=== PATIENT | female | born 1985 | race Caucasian/White ===

== ENCOUNTER 2017-02-07 15:44 | Emergency (ER) | payer SELFPAY ==
--- NOTE | 2017-02-07 16:14 | ER Document Report ---
ED Medical Screen (RME) - General Stated Complaint: POSSIBLE OVARIAN CYST Time seen by provider: 16:13 Mode of Arrival: Ambulatory Information source: Patient Notes: 31-year-old female presents to ED for bilateral pelvic pain. She's got a history of ovarian cyst. Denies any burning frequency or urgency with urine. As menstrual period a few weeks ago. I have greeted and performed a rapid initial assessment of this patient. A comprehensive ED assessment and evaluation of the patient, analysis of test results and completion of medical decision making process will be conducted by an additional ED providers. TRAVEL OUTSIDE OF THE [place] IN LAST 30 DAYS: No - Related Data Allergies/Adverse Reactions: sulfamethoxazole [From Bactrim] Allergy (Verified 08/27/16 14:26) trimethoprim [From Bactrim] Allergy (Verified 08/27/16 14:26) Past Medical History Pulmonary Medical History: Reports: Hx Asthma Psychiatric Medical History: Reports: Hx Anxiety, Hx Bipolar Disorder, Hx Depression, Hx Obsessive Compulsive Disorder, Hx Post Traumatic Stress Disorder Past Surgical History: Reports: Hx Adenoidectomy, Hx Orthopedic Surgery, Hx Tonsillectomy - Immunizations Immunizations up to date: Yes Hx Diphtheria, Pertussis, Tetanus Vaccination: Yes Physical Exam - Vital signs Vitals: Temp Pulse Resp BP Pulse Ox 98.6 F 89 17 126/89 H 99 02/07/17 16:02/07/17 16:02/07/17 16:02/07/17 16:02/07/17 16:09 Course - Vital Signs Vital signs: Temp Pulse Resp BP Pulse Ox 98.6 F 89 17 126/89 H 99 02/07/17 16:02/07/17 16:02/07/17 16:02/07/17 16:02/07/17 16:09
[2017-02-07 16:42] LABS: ABSOLUTE BASOPHILS # (AUTO) 0.1 10^3/uL (0.0-0.2); ABSOLUTE EOSINOPHILS # (AUTO) 0.1 10^3/uL (0.0-0.6); ABSOLUTE LYMPHOCYTES (AUTO) 2.6 10^3/uL (0.5-4.7); ABSOLUTE MONOCYTES (AUTO) 0.8 10^3/uL (0.1-1.4); ABSOLUTE NEUT (AUTO) 6.5 10^3/uL (1.7-8.2); BASOPHILS % (AUTO) 0.7 % (0-2); EOSINOPHILS % (AUTO) 1.4 % (0-6); HEMATOCRIT 40.3 % (36.0-47.0); HEMOGLOBIN 13.7 g/dL (12.0-15.5); HGB HCT DIFFERENCE 0.8; LYMPHOCYTES % (AUTO) 25.5 % (13-45); MEAN CORPUSCULAR HEMOGLOBIN 28.8 pg (27.0-33.4); MEAN CORPUSCULAR VOLUME 85 fl (80-97); MONOCYTES % (AUTO) 7.7 % (3-13); RED BLOOD COUNT 4.75 10^6/uL (3.72-5.28); RED CELL DISTRIBUTION WIDTH 14.4 % (11.5-14.0); SEGMENTED NEUTROPHILS % (AUTO) 64.7 % (42-78)
[2017-02-07 17:05] LABS: ALANINE AMINOTRANSFERASE 27 U/L (9-52); ALBUMIN 4.3 g/dL (3.5-5.0); ALKALINE PHOSPHATASE 75 U/L (38-126); ANION GAP 13 (5-19); ASPARTATE AMINO TRANSFERASE 22 U/L (14-36); BILIRUBIN,DIRECT 0.3 mg/dL (0.0-0.4); BILIRUBIN,TOTAL 0.6 mg/dL (0.2-1.3); BLOOD UREA NITROGEN 10 mg/dL (7-20); CALCIUM 9.8 mg/dL (8.4-10.2); CARBON DIOXIDE 27 mmol/L (22-30); CHLORIDE 103 mmol/L (98-107); CREATININE RESULT 0.82 mg/dL (0.52-1.25); GLUCOSE 90 mg/dL (75-110); POTASSIUM 4.1 mmol/L (3.6-5.0); SODIUM 142.9 mmol/L (137-145); TOTAL PROTEIN 7.4 g/dL (6.3-8.2)
[2017-02-07] MEDS ORDERED: HYDROCODONE/ACETAMINOPHEN 5-325 MG TABLET PO ONE (19:07)
--- NOTE | 2017-02-07 19:09 | ER Document Report ---
ED GI/ - General Chief Complaint: Pelvic Pain Stated Complaint: POSSIBLE OVARIAN CYST Mode of Arrival: Ambulatory Information source: Patient Notes: Patient presents complaining of lower pelvic pain for the past 3 days. Patient reports nausea and vomiting 1 episode today. Patient denies any urinary symptoms, fever, or diarrhea. Patient denies any vaginal bleeding or discharge. Patient states she has a history of ovarian cysts and suspects the same today. TRAVEL OUTSIDE OF THE [place] IN LAST 30 DAYS: No - HPI Patient complains to provider of: Pelvic pain, Vomiting. No: Diarrhea, Dysuria , Vaginal discharge Onset: Other - 3 days Timing/Duration: Persistent Quality of pain: Achy Pain Level: 4 Location: Pelvis Vaginal bleeding (Compared to normal period): None Menstrual period history: denies: Sexual history: Active Associated symptoms: Nausea, Vomiting. denies: Dysuria, Fever, Loss of appetite , Urinary hesitancy, Urinary frequency, Urinary retention, Urinary urgency, Vaginal discharge Exacerbated by: Denies Relieved by: Denies Similar symptoms previously: Yes - ovarian cyst Recently seen / treated by doctor: No - Related Data Allergies/Adverse Reactions: sulfamethoxazole [From Bactrim] Allergy (Verified 08/27/16 14:26) trimethoprim [From Bactrim] Allergy (Verified 08/27/16 14:26) Past Medical History - General Information source: Patient - Social History Smoking Status: Current Every Day Smoker Chew tobacco use (# tins/day): No Drug Abuse: None 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 Denies: Hx Peritoneal Dialysis Psychiatric Medical History: Reports: Hx Anxiety, Hx Bipolar Disorder, Hx Depression, Hx Obsessive Compulsive Disorder, Hx Post Traumatic Stress Disorder Past Surgical History: Reports: Hx Adenoidectomy, Hx Orthopedic Surgery, Hx Tonsillectomy - Immunizations Immunizations up to date: Yes Hx Diphtheria, Pertussis, Tetanus Vaccination: Yes Review of Systems - Review of Systems Constitutional: No symptoms reported. denies: Fever, Recent illness EENT: No symptoms reported Cardiovascular: No symptoms reported. denies: Chest pain Respiratory: No symptoms reported. denies: Cough, Short of breath Gastrointestinal: Abdominal pain, Nausea, Vomiting. denies: Diarrhea Genitourinary: No symptoms reported. denies: Dysuria, Flank pain Female Genitourinary: No symptoms reported. denies: , Vaginal discharge , Vaginal bleeding Musculoskeletal: No symptoms reported. denies: Back pain Skin: No symptoms reported Hematologic/Lymphatic: No symptoms reported Neurological/Psychological: No symptoms reported Physical Exam - Vital signs Vitals: Temp Pulse Resp BP Pulse Ox 98.6 F 89 17 126/89 H 99 02/07/17 16:09 02/07/17 16:02/07/17 16:02/07/17 16:02/07/17 16:09 - General General appearance: Appears well, Alert In distress: None Notes: PHYSICAL EXAMINATION: GENERAL: Well-appearing and in no acute distress. HEAD: Atraumatic, normocephalic. EYES: sclera anicteric, conjunctiva are normal. ENT: nares patent. Moist mucous membranes. NECK: Normal range of motion, supple without lymphadenopathy LUNGS: CTAB and equal. No wheezes rales or rhonchi. HEART: Regular rate and rhythm without murmurs ABDOMEN: Soft, lower pelvic tenderness, normal bowel sounds, no guarding. EXTREMITIES: Normal range of motion, no pitting edema. No cyanosis. BACK: No midline tenderness, no step-off or deformity. No CVA tenderness NEUROLOGICAL: Cranial nerves grossly intact. Normal speech. Normal gait. PSYCH: Normal mood, normal affect. SKIN: Warm, Dry, normal turgor, no rashes or lesions noted - Genitourinary External exam: Normal Speculum exam: Cervix closed, Vaginal discharge Vaginal bleeding: None Bimanuel exam: Normal. No: Cervical motion tender, Adnexal mass, Adnexal tenderness Course - Re-evaluation Re-evalutation: 02/07/17 20:[address] Johnson regarding patient presentation, agrees with discharge plan of care. - Vital Signs Vital signs: Temp Pulse Resp BP Pulse Ox 98.6 F 89 17 126/89 H 99 02/07/17 16:09 02/07/17 16:09 02/07/17 16:02/07/17 16:02/07/17 16:09 - Laboratory Result Diagrams: 02/07/17 16:30 02/07/17 16:30 Laboratory results interpreted by me: 02/07/17 02/07/17 16:30 19:24 RDW 14.4 H Urine Protein 100 H Urine Ketones TRACE H Urine Bilirubin SMALL H Urine Urobilinogen 2.0 H 02/07/17 20:12 Labs- Entire Visit 02/07/17 02/07/17 02/07/17 16:30 16:30 16:30 WBC 10.0 RBC 4.75 Hgb 13.7 Hct 40.3 MCV 85 MCH 28.8 MCHC 34.0 RDW 14.4 H Plt Count 333 Seg Neutrophils % 64.7 Lymphocytes % 25.5 Monocytes % 7.7 Eosinophils % 1.4 Basophils % 0.7 Absolute Neutrophils 6.5 Absolute Lymphocytes 2.6 Absolute Monocytes 0.8 Absolute Eosinophils 0.1 Absolute Basophils 0.1 Sodium 142.9 Potassium 4.1 Chloride 103 Carbon Dioxide 27 Anion Gap 13 BUN 10 Creatinine 0.82 Est GFR ( Amer) > 60 Est GFR (Non-Af Amer) > 60 Glucose 90 Calcium 9.8 Total Bilirubin 0.6 Direct Bilirubin 0.3 Indirect Bilirubin Not Reportable Neonat Total Bilirubin Not Reportable AST 22 ALT 27 Alkaline Phosphatase 75 Total Protein 7.4 Albumin 4.3 Serum HCG, Qual NEGATIVE Urine Color Urine Appearance Urine pH Ur Specific [place] Urine Protein Urine Glucose (UA) Urine Ketones Urine Blood Urine Nitrite Urine Bilirubin Urine Urobilinogen Ur Leukocyte Esterase Urine WBC (Auto) Urine RBC (Auto) Squamous Epi Cells Auto Urine Mucus (Auto) Urine Ascorbic Acid Epi Cells (Wet Prep) Trichomonas (Wet Prep) Vaginal WBC Vaginal RBC Vaginal Yeast 02/07/17 02/07/17 19:24 19:24 WBC RBC Hgb Hct MCV MCH MCHC RDW Plt Count Seg Neutrophils % Lymphocytes % Monocytes % Eosinophils % Basophils % Absolute Neutrophils Absolute Lymphocytes Absolute Monocytes Absolute Eosinophils Absolute Basophils Sodium Potassium Chloride Carbon Dioxide Anion Gap BUN Creatinine Est GFR ( Amer) Est GFR (Non-Af Amer) Glucose Calcium Total Bilirubin Direct Bilirubin Indirect Bilirubin Neonat Total Bilirubin AST ALT Alkaline Phosphatase Total Protein Albumin Serum HCG, Qual Urine Color YELLOW Urine Appearance CLOUDY Urine pH 5.0 Ur Specific [place] 1.034 Urine Protein 100 H Urine Glucose (UA) NEGATIVE Urine Ketones TRACE H Urine Blood NEGATIVE Urine Nitrite NEGATIVE Urine Bilirubin SMALL H Urine Urobilinogen 2.0 H Ur Leukocyte Esterase NEGATIVE Urine WBC (Auto) 4 Urine RBC (Auto) 6 Squamous Epi Cells Auto 22 Urine Mucus (Auto) MANY Urine Ascorbic Acid NEGATIVE Epi Cells (Wet Prep) 3+ EPITHELIALS SEEN Trichomonas (Wet Prep) NO TRICHOMONAS SEEN Vaginal WBC 1+ WBCS SEEN Vaginal RBC NO RBCS SEEN Vaginal Yeast NO YEAST SEEN 02/07/17 20:29 Discharge - Discharge Clinical Impression: Pelvic pain, Hx of ovarian cyst, Nausea Condition: Stable Disposition: HOME, SELF-CARE Instructions: Pelvic Pain ([facility]), 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, Antinausea Medication ([facility]), Nausea or Vomiting, Nonspecific ([facility]), Ovarian Cyst ([facility]), Anti-Inflammatory Medication ([facility]), Oral Narcotic Medication ([facility]) Additional Instructions: Return immediately for any new or worsening symptoms, increased pain, fever, persistent vomiting, or any concerning symptoms Followup with your primary care provider, call tomorrow to make a followup appointment Follow up with an [employer] provider for a recheck Prescriptions: Hydrocodone/Acetaminophen [[place] 5-325 Tablet] 1 each PO Q4 PRN #8 tablet PRN Reason: Naproxen [Naprosyn 250 Nmg Tablet] 1 tab PO BID #14 tablet Ondansetron HCl [Zofran 4 mg Tablet] 1 - 2 tab PO Q6 PRN #15 tablet PRN Reason: Forms: Return to Work Referrals: [facility] [Provider Group] - Follow up as needed [facility] [NO LOCAL MD] - Follow up tomorrow
[2017-02-07 19:58] LABS: APPEARANCE,URINE CLOUDY; BILIRUBIN,URINE SMALL (NEGATIVE); GLUCOSE, URINE NEGATIVE (NEGATIVE); KETONES,URINE TRACE mg/dL (NEGATIVE); LEUKOCYTE ESTERASE,URINE NEGATIVE (NEGATIVE); NITRITE,URINE NEGATIVE (NEGATIVE); PROTEIN,URINE 100 mg/dL (NEGATIVE); URINE SPECIFIC GRAVITY 1.034
[2017-02-07] MEDS ORDERED: ONDANSETRON 4 MG TAB.RAPDIS PO ONE (20:19)
[2017-02-07 20:40] VITALS: BP 118/81
[2017-02-07 21:12] LABS: CHLAM PCR NOT DETECTED (NOT DETECT)
== END 2017-02-07 20:42 | disposition home or self-care (01) ==
LOC: ER 15:44
DX: R10.2 Pelvic and perineal pain (principal); R11.2 Nausea with vomiting, unspecified; J45.909 Unspecified asthma, uncomplicated; F17.200 Nicotine dependence, unspecified, uncomplicated; Z87.42 Personal history of other diseases of the female genital tract; Z88.1 Allergy status to other antibiotic agents
CPT/HCPCS: 99284; 36415; 87210; 84703; 85025; 80053; 81001; 87491; 87591; S0119

== ENCOUNTER 2017-02-11 20:06 | Emergency (ER) | payer SELFPAY ==
[2017-02-11] MEDS ORDERED: ONDANSETRON 4 MG TAB.RAPDIS PO ONE (21:34)
--- NOTE | 2017-02-11 21:35 | ER Document Report ---
ED Medical Screen (RME) - General Chief Complaint: Abdominal Pain Stated Complaint: ABDOMINAL PAIN Mode of Arrival: Ambulatory Information source: Patient Notes: Patient returns to the emergency department with complaints of lower bilateral abdominal pain. Reports history of ovarian cyst. Reports she's had a fever on and off and has been vomiting. She reports she was evaluated here last for the same. Denies pain with void reports slight vaginal spotting. TRAVEL OUTSIDE OF THE [place] IN LAST 30 DAYS: No - Related Data Allergies/Adverse Reactions: sulfamethoxazole [From Bactrim] Allergy (Verified 08/27/16 14:26) trimethoprim [From Bactrim] Allergy (Verified 08/27/16 14:26) Past Medical History Pulmonary Medical History: Reports: Hx Asthma Renal/ Medical History: Reports: Hx Ovarian Cysts. Denies: Hx Peritoneal Dialysis Psychiatric Medical History: Reports: Hx Anxiety, Hx Bipolar Disorder, Hx Depression, Hx Obsessive Compulsive Disorder, Hx Post Traumatic Stress Disorder Past Surgical History: Reports: Hx Adenoidectomy, Hx Orthopedic Surgery, Hx Tonsillectomy - Immunizations Immunizations up to date: Yes Hx Diphtheria, Pertussis, Tetanus Vaccination: Yes Physical Exam - Vital signs Vitals: Temp Pulse BP Pulse Ox 99.1 F 98 109/84 98 02/11/17 21:02 02/11/17 21:02 02/11/17 21:02 02/11/17 21:02 Course - Vital Signs Vital signs: Temp Pulse Resp BP Pulse Ox 99.1 F 98 109/84 98 02/11/17 21:02 02/11/17 21:02 02/11/17 21:02 02/11/17 21:02
[2017-02-11 21:47] LABS: ABSOLUTE BASOPHILS # (AUTO) 0.1 10^3/uL (0.0-0.2); ABSOLUTE EOSINOPHILS # (AUTO) 0.3 10^3/uL (0.0-0.6); ABSOLUTE LYMPHOCYTES (AUTO) 2.8 10^3/uL (0.5-4.7); ABSOLUTE MONOCYTES (AUTO) 0.8 10^3/uL (0.1-1.4); ABSOLUTE NEUT (AUTO) 7.5 10^3/uL (1.7-8.2); BASOPHILS % (AUTO) 0.6 % (0-2); EOSINOPHILS % (AUTO) 2.7 % (0-6); HEMATOCRIT 42.4 % (36.0-47.0); HEMOGLOBIN 14.3 g/dL (12.0-15.5); HGB HCT DIFFERENCE 0.5; LYMPHOCYTES % (AUTO) 24.5 % (13-45); MEAN CORPUSCULAR HEMOGLOBIN 28.4 pg (27.0-33.4); MEAN CORPUSCULAR HGB CONC 33.8 g/dL (32.0-36.0); MEAN CORPUSCULAR VOLUME 84 fl (80-97); RED BLOOD COUNT 5.04 10^6/uL (3.72-5.28); RED CELL DISTRIBUTION WIDTH 14.1 % (11.5-14.0); SEGMENTED NEUTROPHILS % (AUTO) 65.2 % (42-78); WHITE BLOOD COUNT 11.5 10^3/uL (4.0-10.5)
[2017-02-11 21:53] LABS: APPEARANCE,URINE SLIGHTLY-CLOUDY; BILIRUBIN,URINE NEGATIVE (NEGATIVE); GLUCOSE, URINE NEGATIVE (NEGATIVE); KETONES,URINE NEGATIVE (NEGATIVE); LEUKOCYTE ESTERASE,URINE NEGATIVE (NEGATIVE); NITRITE,URINE NEGATIVE (NEGATIVE); PROTEIN,URINE NEGATIVE (NEGATIVE); URINE SPECIFIC GRAVITY 1.009; UROBILINOGEN,URINE NEGATIVE mg/dL (<2.0)
[2017-02-11 22:09] LABS: ALANINE AMINOTRANSFERASE 26 U/L (9-52); ALBUMIN 4.6 g/dL (3.5-5.0); ALKALINE PHOSPHATASE 70 U/L (38-126); ANION GAP 10 (5-19); ASPARTATE AMINO TRANSFERASE 21 U/L (14-36); BILIRUBIN,DIRECT 0.2 mg/dL (0.0-0.4); BILIRUBIN,TOTAL 0.6 mg/dL (0.2-1.3); BLOOD UREA NITROGEN 9 mg/dL (7-20); CALCIUM 10.4 mg/dL (8.4-10.2); CARBON DIOXIDE 26 mmol/L (22-30); CHLORIDE 104 mmol/L (98-107); CREATININE RESULT 0.76 mg/dL (0.52-1.25); GLUCOSE 84 mg/dL (75-110); LIPASE 100.7 U/L (23-300); POTASSIUM 4.4 mmol/L (3.6-5.0); SODIUM 140.2 mmol/L (137-145); TOTAL PROTEIN 7.5 g/dL (6.3-8.2)
[2017-02-12] MEDS ORDERED: PROMETHAZINE HCL 25 MG TABLET PO ONE (02:39)
[2017-02-12] MEDS ORDERED: HYDROCODONE/ACETAMINOPHEN 5-325 MG 6 TAB/DSPK PO PRN (02:39)
--- NOTE | 2017-02-12 02:41 | ER Document Report ---
ED GI/ - General Chief Complaint: Abdominal Pain Stated Complaint: ABDOMINAL PAIN Time seen by provider: 02:40 Mode of Arrival: Ambulatory Information source: Patient TRAVEL OUTSIDE OF THE [place] IN LAST 30 DAYS: No - HPI Patient complains to provider of: Pelvic pain, Vomiting Onset: Other - 3 days Timing/Duration: Gradual Quality of pain: Achy Severity at maximum: Moderate Severity in ED: Moderate Location: Pelvis Vaginal bleeding (Compared to normal period): None Associated symptoms: Nausea, Vomiting Exacerbated by: Denies Relieved by: Denies Similar symptoms previously: Yes Recently seen / treated by doctor: Yes Notes: 02/12/17 04:28 Patient is a 31-year-old female with a history of PCO S who presents to the emergency room complaining of left-sided pelvic pain that started on of last week, in fact she was seen in this emergency room for those symptoms and diagnosed with an ovarian cyst, she states over the past few days she's developed nausea and vomiting with a low-grade temperature, denies any diarrhea , no dysuria or hematuria, no vaginal bleeding or discharge - Related Data Allergies/Adverse Reactions: sulfamethoxazole [From Bactrim] Allergy (Verified 08/27/16 14:26) trimethoprim [From Bactrim] Allergy (Verified 08/27/16 14:26) Past Medical History - General Information source: Patient - Social History Smoking Status: Current Every Day Smoker Frequency of alcohol use: None Drug Abuse: None Family History: Reviewed & Not Pertinent Patient has suicidal ideation: No Patient has homicidal ideation: No Pulmonary Medical History: Reports: Hx Asthma Renal/ Medical History: Reports: Hx Ovarian Cysts. Denies: Hx Peritoneal Dialysis Psychiatric Medical History: Reports: Hx Anxiety, Hx Bipolar Disorder, Hx Depression, Hx Obsessive Compulsive Disorder, Hx Post Traumatic Stress Disorder Past Surgical History: Reports: Hx Adenoidectomy, Hx Orthopedic Surgery, Hx Tonsillectomy - Immunizations Immunizations up to date: Yes Hx Diphtheria, Pertussis, Tetanus Vaccination: Yes Review of Systems - Review of Systems Constitutional: No symptoms reported EENT: No symptoms reported Cardiovascular: No symptoms reported Respiratory: No symptoms reported Gastrointestinal: See HPI Genitourinary: See HPI Female Genitourinary: No symptoms reported Musculoskeletal: No symptoms reported Skin: No symptoms reported Hematologic/Lymphatic: No symptoms reported Neurological/Psychological: No symptoms reported -: Yes All other systems reviewed and negative Physical Exam - Vital signs Vitals: Temp Pulse BP Pulse Ox 99.1 F 98 109/84 98 02/11/17 21:02 02/11/17 21:02 02/11/17 21:02 02/11/17 21:02 Interpretation: Normal - General General appearance: Appears well, Alert - HEENT Head: Normocephalic, Atraumatic Eyes: Normal Pupils: PERRL - Respiratory Respiratory status: No respiratory distress Chest status: Nontender Breath sounds: Normal Chest palpation: Normal - Cardiovascular Rhythm: Regular Heart sounds: Normal auscultation Murmur: No - Abdominal Inspection: Normal Distension: No distension Bowel sounds: Normal Tenderness: Tender - Tenderness in the left adnexa Organomegaly: No organomegaly - Back Back: Normal, Nontender - Extremities General upper extremity: Normal inspection, Nontender, Normal color, Normal ROM , Normal temperature General lower extremity: Normal inspection, Nontender, Normal color, Normal ROM , Normal temperature, Normal weight bearing. No: Estela's sign - Neurological Neuro grossly intact: Yes Cognition: Normal Orientation: AAOx4 [place] Coma Scale Eye Opening: Spontaneous Ac Coma Scale Verbal: Oriented Ac Coma Scale Motor: Obeys Commands Ac Coma Scale Total: 15 Speech: Normal Motor strength normal: LUE, RUE, LLE, RLE Sensory: Normal - Psychological Associated symptoms: Normal affect, Normal mood - Skin Skin Temperature: Warm Skin Moisture: Dry Skin Color: Normal Course - Re-evaluation Re-evalutation: 02/12/17 04:29 Patient symptoms consistent with ovarian cyst, ultrasound confirms this, she also likely has a viral gastroenteritis, was discharged with pain meds and nausea meds as well as information for follow-up, advised to return if symptoms worsen, patient acknowledges understanding and agreement with this plan - Vital Signs Vital signs: Temp Pulse Resp BP Pulse Ox 97.7 F 93 20 126/78 H 99 02/12/17 03:21 02/12/17 03:21 02/12/17 03:21 02/12/17 03:21 02/12/17 03:21 - Laboratory Result Diagrams: 02/11/17 21:25 02/11/17 21:25 Laboratory results interpreted by me: 02/11/17 02/11/17 21:25 21:25 WBC 11.5 H RDW 14.1 H Calcium 10.4 H - Diagnostic Test Radiology reviewed: Image reviewed, Reports reviewed Discharge - Discharge Clinical Impression: Ovarian cyst Qualifiers: Laterality: left Qualified Code(s): N83.202 - Unspecified ovarian cyst, left side Nausea and vomiting Qualifiers: Vomiting type: unspecified Vomiting Intractability: non-intractable Qualified Code(s): R11.2 - Nausea with vomiting, unspecified Condition: Stable Disposition: HOME, SELF-CARE Instructions: Antinausea Medication ([facility]), Vomiting ([facility]), Ovarian Cyst ([facility]), 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 Return to the emergency room immediately if symptoms worsen or any additional concerns. Prescriptions: Promethazine HCl [Phenergan 25 mg Tablet] 25 - 50 mg PO ASDIR PRN #12 tablet PRN Reason:
[2017-02-12 03:34] VITALS: BP 126/78
== END 2017-02-12 03:21 | disposition home or self-care (01) ==
LOC: ER 20:06
DX: N83.202 Unspecified ovarian cyst, left side (principal); R10.2 Pelvic and perineal pain; R11.2 Nausea with vomiting, unspecified; F17.200 Nicotine dependence, unspecified, uncomplicated; J45.909 Unspecified asthma, uncomplicated; Z88.1 Allergy status to other antibiotic agents
CPT/HCPCS: 99284; 36415; 83690; 84703; 85025; 80053; 81001; 76830; 93976; S0119

== ENCOUNTER 2017-04-11 11:41 | Emergency (ER) | payer SELFPAY ==
[2017-04-11 11:49] VITALS: BP 137/82
[2017-04-11] MEDS ORDERED: ONDANSETRON 4 MG TAB.RAPDIS PO ONE (11:57)
--- NOTE | 2017-04-11 11:59 | ER Document Report ---
ED Medical Screen (RME) - General Chief Complaint: Flank Pain Stated Complaint: VOMITING,FEVER,LOW BACK PAIN Time Seen by Provider: 04/11/17 11:50 Mode of Arrival: Ambulatory Information source: Patient Notes: Patient presents to the emergency department with right flank pain for the past few days. Patient was evaluated and treated at [facility] with IV antibiotics and diagnosed with acute pyelonephritis yesterday. Patient reports the pain is the same. She reports she has been vomiting all night. Reports subjective fever, took Naprosyn at approximately 9:00. TRAVEL OUTSIDE OF THE [place] IN LAST 30 DAYS: No - Related Data Allergies/Adverse Reactions: ciprofloxacin [From Cipro] Allergy (Verified 04/11/17 11:46) sulfamethoxazole [From Bactrim] Allergy (Verified 04/11/17 11:46) trimethoprim [From Bactrim] Allergy (Verified 04/11/17 11:46) Past Medical History Pulmonary Medical History: Reports: Hx Asthma Renal/ Medical History: Reports: Hx Ovarian Cysts. Denies: Hx Peritoneal Dialysis Psychiatric Medical History: Reports: Hx Anxiety, Hx Bipolar Disorder, Hx Depression, Hx Obsessive Compulsive Disorder, Hx Post Traumatic Stress Disorder Past Surgical History: Reports: Hx Adenoidectomy, Hx Orthopedic Surgery, Hx Tonsillectomy - Immunizations Immunizations up to date: Yes Hx Diphtheria, Pertussis, Tetanus Vaccination: Yes Physical Exam - Vital signs Vitals: Temp Pulse Resp BP Pulse Ox 98.9 F 104 H 16 137/82 H 98 04/11/17 11:46 04/11/17 11:46 04/11/17 11:46 04/11/17 11:46 04/11/17 11:46 Course - Vital Signs Vital signs: Temp Pulse Resp BP Pulse Ox 98.9 F 104 H 16 137/82 H 98 04/11/17 11:46 04/11/17 11:46 04/11/17 11:46 04/11/17 11:46 04/11/17 11:46
[2017-04-11 13:05] LABS: ABSOLUTE BASOPHILS # (AUTO) 0.1 10^3/uL (0.0-0.2); ABSOLUTE EOSINOPHILS # (AUTO) 0.1 10^3/uL (0.0-0.6); ABSOLUTE LYMPHOCYTES (AUTO) 1.9 10^3/uL (0.5-4.7); ABSOLUTE MONOCYTES (AUTO) 1.3 10^3/uL (0.1-1.4); ABSOLUTE NEUT (AUTO) 13.5 10^3/uL (1.7-8.2); BASOPHILS % (AUTO) 0.6 % (0-2); EOSINOPHILS % (AUTO) 0.7 % (0-6); MEAN CORPUSCULAR HGB CONC 32.4 g/dL (32.0-36.0); MEAN CORPUSCULAR VOLUME 86 fl (80-97); MONOCYTES % (AUTO) 7.9 % (3-13); RED BLOOD COUNT 3.95 10^6/uL (3.72-5.28); RED CELL DISTRIBUTION WIDTH 14.8 % (11.5-14.0); SEGMENTED NEUTROPHILS % (AUTO) 79.8 % (42-78); WHITE BLOOD COUNT 16.9 10^3/uL (4.0-10.5)
[2017-04-11] MEDS ORDERED: OXYCODONE-ACETAMINOPHEN 5-325 MG TABLET PO ONE (13:17)
[2017-04-11 13:21] LABS: ALANINE AMINOTRANSFERASE 25 U/L (9-52); ALBUMIN 3.8 g/dL (3.5-5.0); ALKALINE PHOSPHATASE 61 U/L (38-126); ANION GAP 10 (5-19); ASPARTATE AMINO TRANSFERASE 17 U/L (14-36); BILIRUBIN,DIRECT 0.3 mg/dL (0.0-0.4); BILIRUBIN,TOTAL 0.7 mg/dL (0.2-1.3); BLOOD UREA NITROGEN 5 mg/dL (7-20); CALCIUM 8.9 mg/dL (8.4-10.2); CARBON DIOXIDE 24 mmol/L (22-30); CHLORIDE 104 mmol/L (98-107); CREATININE RESULT 0.77 mg/dL (0.52-1.25); GLUCOSE 82 mg/dL (75-110); POTASSIUM 3.6 mmol/L (3.6-5.0); SODIUM 137.8 mmol/L (137-145); TOTAL PROTEIN 6.9 g/dL (6.3-8.2)
--- NOTE | 2017-04-11 13:45 | ER Document Report ---
ED GI/ - General Mode of Arrival: Ambulatory Information source: Patient TRAVEL OUTSIDE OF THE U.S. IN LAST 30 DAYS: No - HPI Patient complains to provider of: Abdominal pain, Flank pain, Hematuria, Vomiting Onset: Other - Refer to HPI notes Similar symptoms previously: Yes Recently seen / treated by doctor: Yes <MARY MARS - Last Filed: 04/11/17 14:23> <RISA RAINEY - Last Filed: 04/11/17 15:02> - General Chief Complaint: Flank Pain Stated Complaint: VOMITING,FEVER,LOW BACK PAIN Time Seen by Provider: 04/11/17 11:50 Notes: Patient is a 31-year-old female presenting to the emergency department for bilateral flank pain, vomiting and hematuria. Patient also has had some fevers at night. Patient states that she was seen yesterday at the [facility] emergency department, which is associated with [facility], and diagnosed with acute pyelonephritis. Patient states that she had been given antibiotics while she was in the emergency department but was discharged with only a prescription for Naprosyn and no antibiotics. Patient states she filled her Naprosyn prescription and states she took Naprosyn at 9:00. Patient states she is from [place] and is new to the area. Patient has been evaluated at [facility] emergency department multiple times over the last few years. Patient states 9 years ago she saw a urologist for recurrent kidney infections and then they stopped so she hasn't seen a urologist for years. Patient has her discharge paperwork from yesterday but is missing page 2 of 5 which shows the prescriptions she received and procedures that were conducted at her visit. [facility] emergency department was called and the patient did receive prescriptions for Naprosyn, Milton, and Augmentin. According to the [place] Controlled Substance Reporting System, the patient filled the prescription for Milton yesterday at the [facility] and they stated that they have prescriptions for Naprosyn and Augmentin. The pharmacist remembered the patient yesterday and stated that the patient only filled the Milton and stated that she would get her mother to help her buy the other 2 medications since she only had 7 dollars. (MARY MARS) - Related Data Allergies/Adverse Reactions: ciprofloxacin [From Cipro] Allergy (Verified 04/11/17 11:46) sulfamethoxazole [From Bactrim] Allergy (Verified 04/11/17 11:46) trimethoprim [From Bactrim] Allergy (Verified 04/11/17 11:46) Past Medical History - General Information source: Patient - Social History Smoking Status: Current Every Day Smoker Cigarette use (# per day): Yes - 1 ppd Frequency of alcohol use: Occasional Family History: None Patient has suicidal ideation: No Patient has homicidal ideation: No Pulmonary Medical History: Reports: Hx Asthma Renal/ Medical History: Reports: Hx Ovarian Cysts, Other - polycystic ovarian syndrome Psychiatric Medical History: Reports: Hx Anxiety, Hx Bipolar Disorder, Hx Depression, Hx Obsessive Compulsive Disorder, Hx Post Traumatic Stress Disorder Past Surgical History: Reports: Hx Adenoidectomy, Hx Orthopedic Surgery, Hx Tonsillectomy - Immunizations Immunizations up to date: Yes Hx Diphtheria, Pertussis, Tetanus Vaccination: Yes <MARY MARS - Last Filed: 04/11/17 14:23> Review of Systems - Review of Systems Constitutional: See HPI, Fever EENT: No symptoms reported Cardiovascular: No symptoms reported Respiratory: No symptoms reported Gastrointestinal: No symptoms reported Genitourinary: See HPI, Flank pain, Hematuria Female Genitourinary: No symptoms reported Musculoskeletal: No symptoms reported Skin: No symptoms reported Hematologic/Lymphatic: No symptoms reported Neurological/Psychological: No symptoms reported -: Yes All other systems reviewed and negative <MARY MARS - Last Filed: 04/11/17 14:23> Physical Exam - Vital signs Interpretation: Normal - General General appearance: Alert, Other - appears uncomfortable In distress: Mild - HEENT Head: Normocephalic, Atraumatic Eyes: Normal Pupils: PERRL Mucous membranes: Moist - Respiratory Respiratory status: No respiratory distress Chest status: Nontender Breath sounds: Wheezing - consistent with patient's smoking and asthma history Chest palpation: Normal - Cardiovascular Rhythm: Regular Heart sounds: Normal auscultation Murmur: No - Abdominal Inspection: Morbidly Obese Distension: No distension Bowel sounds: Normal Tenderness: Nontender Organomegaly: No organomegaly - Back Back: Tender - mild lumbar musculature tenderness to palpitation, CVA tenderness - minimal CVA tenderness to percussion bilaterally - Extremities General upper extremity: Normal inspection, Normal ROM, Normal strength General lower extremity: Normal inspection, Normal ROM, Normal strength - Neurological Neuro grossly intact: Yes Cognition: Normal Orientation: AAOx4 Hendricks Coma Scale Eye Opening: Spontaneous Ac Coma Scale Verbal: Oriented Hendricks Coma Scale Motor: Obeys Commands Ac Coma Scale Total: 15 Speech: Normal - Psychological Associated symptoms: Normal affect, Normal mood - Skin Skin Temperature: Warm Skin Moisture: Dry <MARY MARS - Last Filed: 04/11/17 14:23> <RISA RAINEY - Last Filed: 04/11/17 15:02> - Vital signs Vitals: Temp Pulse Resp BP Pulse Ox 98.9 F 104 H 16 137/82 H 98 04/11/17 11:46 04/11/17 11:46 04/11/17 11:46 04/11/17 11:46 04/11/17 11:46 Course - Laboratory Result Diagrams: 04/11/17 12:41 04/11/17 12:41 <LAILA MARSINE - Last Filed: 04/11/17 14:23> - Laboratory Result Diagrams: 04/11/17 12:41 04/11/17 12:41 <RISA RAINEY - Last Filed: 04/11/17 15:02> - Re-evaluation Re-evalutation: 04/11/17 14:50 Patient was seen at the [facility] branch of [facility] and diagnosed with acute pyelonephritis. She received Rocephin IV in that the emergency room. The urine yesterday had greater than 100 WBCs per high-power field, a few WBC clumps, and was nitrite positive. Today the urine is nitrite and leukocyte esterase negative and has only been WBCs per high-power field. Yesterday she was given prescriptions for Milton, Naprosyn, and Augmentin. She only filled the Milton prescription. Confirmed by discussion with the pharmacist that was involved with her care yesterday. At this time she does not know if the Augmentin prescription has been lost or is at her home. She will be given another prescription for Augmentin and discharged. (RISA RAINEY) - Vital Signs Vital signs: Temp Pulse Resp BP Pulse Ox 98.9 F 104 H 16 137/82 H 98 04/11/17 11:46 04/11/17 11:46 04/11/17 11:46 04/11/17 11:46 04/11/17 11:46 - Laboratory Laboratory results interpreted by me: 04/11/17 04/11/17 04/11/17 12:41 12:41 12:41 WBC 16.9 H Hgb 11.0 L Hct 34.0 L RDW 14.8 H Seg Neutrophils % 79.8 H Lymphocytes % 11.0 L Absolute Neutrophils 13.5 H BUN 5 L Urine Blood SMALL H Discharge <MARY MARS - Last Filed: 04/11/17 14:23> <RISA RAINEY - Last Filed: 04/11/17 15:02> - Discharge Clinical Impression: Urinary tract infection Qualifiers: Urinary tract infection type: site unspecified Hematuria presence: with hematuria Qualified Code(s): N39.0 - Urinary tract infection, site not specified ; R31.9 - Hematuria, unspecified Low back pain Qualifiers: Chronicity: unspecified Back pain laterality: bilateral Sciatica presence: without sciatica Qualified Code(s): M54.5 - Low back pain Condition: Stable Disposition: HOME, SELF-CARE Additional Instructions: Urinary Tract Infection: Your evaluation indicates that your urinary tract infection is starting to clear after the antibiotic you received yesterday. This infection usually responds quickly to antibiotics. Your antibiotic should be taken exactly as prescribed. Drink plenty of fluids -- three to four quarts a day. Certain urine infections require a culture. If the doctor obtained a culture, the results will be back in two days. You should call to see if a change in treatment is needed. A repeat urinalysis after you finish treatment is often recommended. The physician will let you know if further testing is required. Call the doctor if you develop fever, chills, flank pain, inability to urinate, or blood in the urine. TAKE THE AUGMENTIN PRESCRIBED. DRINK PLENTY OF FLUIDS. FOLLOW UP WITH A LOCAL MEDICAL DOCTOR IF NOT IMPROVING. RETURN TO THE EMERGENCY ROOM IF ANY NEW OR WORSENING SYMPTOMS. Prescriptions: Amox Tr/Potassium Clavulanate [Augmentin 875-125 mg Tablet] 1 tab PO BID #14 tablet Scribe Attestation: 04/11/17 15:02 I personally performed the services described in the documentation, reviewed and edited the documentation which was dictated to the scribe in my presence, and it accurately records my words and actions. (RISA RAINEY) Scribe Documentation - Scribe Written by Scribe:: Eduardo Brandt, 04/11/17 13:52 acting as scribe for :: Niall <MARY MARS - Last Filed: 04/11/17 14:23>
[2017-04-11 14:20] LABS: APPEARANCE,URINE SLIGHTLY-CLOUDY; BILIRUBIN,URINE NEGATIVE (NEGATIVE); GLUCOSE, URINE NEGATIVE (NEGATIVE); KETONES,URINE NEGATIVE (NEGATIVE); LEUKOCYTE ESTERASE,URINE NEGATIVE (NEGATIVE); NITRITE,URINE NEGATIVE (NEGATIVE); PROTEIN,URINE NEGATIVE (NEGATIVE); URINE SPECIFIC GRAVITY 1.012; UROBILINOGEN,URINE NEGATIVE mg/dL (<2.0)
[2017-04-11] MEDS ORDERED: AMOXICILLIN TRIHYDRATE 500 MG CAPSULE PO ONE (14:49)
[2017-04-11] MEDS ORDERED: AMOXICILLIN TR/POT CLAVULANATE 500-125 MG TAB PO ONE (14:49)
== END 2017-04-11 15:36 | disposition home or self-care (01) ==
LOC: ER 11:41
DX: N39.0 Urinary tract infection, site not specified (principal); M54.5 Low back pain; R10.9 Unspecified abdominal pain; R31.9 Hematuria, unspecified; R11.10 Vomiting, unspecified; F17.210 Nicotine dependence, cigarettes, uncomplicated; J45.909 Unspecified asthma, uncomplicated; E66.01 Morbid (severe) obesity due to excess calories; Z88.3 Allergy status to other anti-infective agents
CPT/HCPCS: 99284; 36415; 87086; 84703; 85025; 80053; 81001; S0119

== ENCOUNTER 2017-05-21 21:13 | Emergency (ER) | payer SELFPAY ==
[2017-05-21] MEDS ORDERED: ONDANSETRON 4 MG TAB.RAPDIS PO ONE (22:06)
--- NOTE | 2017-05-21 22:07 | ER Document Report ---
ED Substance Abuse / Acc. OD - General Mode of Arrival: Ambulatory Information source: Patient TRAVEL OUTSIDE OF THE [place] IN LAST 30 DAYS: No - General Chief Complaint: ETOH Abuse Stated Complaint: POSSIBLE ETOH Time Seen by Provider: 05/21/17 21:23 Notes: Patient is a 32-year-old female who presents to the emergency department today secondary to "drinking too much". Patient was playing on her cell phone upon entry to the room in no distress. Patient appears slightly intoxicated. Patient states she "vomited a little bit" prior to arrival. Patient denies any homicidal or suicidal ideation. (SPENSER MEJIA) - Related Data Allergies/Adverse Reactions: ciprofloxacin [From Cipro] Allergy (Verified 04/11/17 11:46) sulfamethoxazole [From Bactrim] Allergy (Verified 04/11/17 11:46) trimethoprim [From Bactrim] Allergy (Verified 04/11/17 11:46) Past Medical History - General Information source: Patient - Social History Smoking Status: Current Every Day Smoker Cigarette use (# per day): Yes Chew tobacco use (# tins/day): No Frequency of alcohol use: Heavy Drug Abuse: None Lives with: Family Family History: None Pulmonary Medical History: Reports: Hx Asthma Renal/ Medical History: Reports: Hx Ovarian Cysts GI Medical History: Reports: Hx Gastroesophageal Reflux Disease Psychiatric Medical History: Reports: Hx Anxiety, Hx Bipolar Disorder, Hx Depression, Hx Obsessive Compulsive Disorder, Hx Post Traumatic Stress Disorder Past Surgical History: Reports: Hx Adenoidectomy, Hx Orthopedic Surgery, Hx Tonsillectomy - Immunizations Immunizations up to date: Yes Hx Diphtheria, Pertussis, Tetanus Vaccination: Yes Review of Systems - Review of Systems Constitutional: See HPI, Other - "drank too much" EENT: No symptoms reported Cardiovascular: No symptoms reported Respiratory: No symptoms reported Gastrointestinal: No symptoms reported Genitourinary: No symptoms reported Female Genitourinary: No symptoms reported Musculoskeletal: No symptoms reported Skin: No symptoms reported Hematologic/Lymphatic: No symptoms reported Neurological/Psychological: No symptoms reported -: Yes All other systems reviewed and negative Physical Exam - Vital signs Vitals: Temp Pulse Resp BP Pulse Ox 98.5 F 84 18 127/70 H 99 05/21/17 21:44 05/21/17 21:44 05/21/17 21:44 05/21/17 21:44 05/21/17 21:44 - Notes Notes: Physical Exam: General: Alert, appears slightly intoxicated. Playing on phone upon entry into room. HEENT: Normocephalic. Atraumatic. PERRLA. Extraocular movements intact. Oropharynx clear. Neck: Supple. Respiratory: No respiratory distress. Abdominal: Normal Inspection. No distension. Extremities: Moves all four extremities. Neurological: Cranial nerves II-XII grossly intact bilaterally. Normal cognition. AAOx4. Normal speech. Psychological: Normal affect. Normal Mood. Skin: Warm. Dry. Normal color. (SPENSER MEJIA) Course - Re-evaluation Re-evalutation: 05/21/17 22:48 Patient is a 32-year-old female who comes in for intoxication. Patient is able to ambulate. Patient will be discharged home after she takes p.o. and feels better after Zofran. Follow-up with PMD as needed. Avoid consuming large amounts of alcohol. (MARTHA PALM) - Vital Signs Vital signs: Temp Pulse Resp BP Pulse Ox 97.9 F 99 16 125/84 99 05/21/17 23:10 05/21/17 23:10 05/21/17 23:10 05/21/17 23:10 05/21/17 23:10 Discharge - Discharge Clinical Impression: Alcohol intoxication Qualifiers: Complication of substance-induced condition: uncomplicated Qualified Code(s): F10.920 - Alcohol use, unspecified with intoxication, uncomplicated Condition: Stable Disposition: HOME, SELF-CARE Instructions: Acute Alcohol Intoxication ([facility]) Forms: Return to Work Scribe Attestation: 05/21/17 23:50 I personally performed the services described in the documentation, reviewed and edited the documentation which was dictated to the scribe in my presence, and it accurately records my words and actions. (MARTHA PALM) Scribe Documentation - Scribe Written by Eduardo:: Eduardo Young, 05/21/2017 [id number] acting as scribe for :: Lisa
[2017-05-21 23:11] VITALS: BP 125/84
== END 2017-05-21 23:22 | disposition home or self-care (01) ==
LOC: ER 21:13
DX: F10.920 Alcohol use, unspecified with intoxication, uncomplicated (principal); R11.10 Vomiting, unspecified; F17.210 Nicotine dependence, cigarettes, uncomplicated; Z88.3 Allergy status to other anti-infective agents
CPT/HCPCS: 99284; S0119

== ENCOUNTER 2017-06-19 20:54 | Emergency (ER) | payer SELFPAY ==
[2017-06-20 00:16] LABS: APPEARANCE,URINE SLIGHTLY-CLOUDY; BILIRUBIN,URINE NEGATIVE (NEGATIVE); GLUCOSE, URINE NEGATIVE (NEGATIVE); KETONES,URINE 80 mg/dL (NEGATIVE); LEUKOCYTE ESTERASE,URINE NEGATIVE (NEGATIVE); NITRITE,URINE NEGATIVE (NEGATIVE); PROTEIN,URINE 30 mg/dL (NEGATIVE); URINE SPECIFIC GRAVITY 1.036
[2017-06-20 00:31] LABS: HEMATOCRIT 39.7 % (36.0-47.0); HEMOGLOBIN 13.1 g/dL (12.0-15.5); HGB HCT DIFFERENCE -0.4; MEAN CORPUSCULAR HEMOGLOBIN 27.6 pg (27.0-33.4); MEAN CORPUSCULAR HGB CONC 32.9 g/dL (32.0-36.0); MEAN CORPUSCULAR VOLUME 84 fl (80-97); RED BLOOD COUNT 4.74 10^6/uL (3.72-5.28); RED CELL DISTRIBUTION WIDTH 14.6 % (11.5-14.0); WHITE BLOOD COUNT 13.5 10^3/uL (4.0-10.5)
[2017-06-20 00:49] LABS: BASOPHILS % (MANUAL) 0 % (0-2); EOSINOPHILS % (MANUAL) 0 % (0-6); LYMPHOCYTES % (MANUAL) 4 % (13-45); TOTAL CELLS COUNTED 100
[2017-06-20 00:50] LABS: ALANINE AMINOTRANSFERASE 46 U/L (9-52); ALBUMIN 4.1 g/dL (3.5-5.0); ALKALINE PHOSPHATASE 72 U/L (38-126); ANION GAP 12 (5-19); ASPARTATE AMINO TRANSFERASE 49 U/L (14-36); BILIRUBIN,DIRECT 0.4 mg/dL (0.0-0.4); BILIRUBIN,TOTAL 0.8 mg/dL (0.2-1.3); BLOOD UREA NITROGEN 13 mg/dL (7-20); CALCIUM 9.6 mg/dL (8.4-10.2); CARBON DIOXIDE 22 mmol/L (22-30); CHLORIDE 106 mmol/L (98-107); CREATININE RESULT 0.84 mg/dL (0.52-1.25); GLUCOSE 94 mg/dL (75-110); LIPASE 95.4 U/L (23-300); SODIUM 139.6 mmol/L (137-145); TOTAL PROTEIN 7.2 g/dL (6.3-8.2)
[2017-06-20 00:51] LABS: ANISOCYTOSIS SLIGHT; OVALOCYTES SLIGHT; POIKILOCYTOSIS SLIGHT; POLYCHROMASIA SLIGHT; TOXIC GRANULATION SLIGHT; TOXIC VACUOLATION PRESENT
[2017-06-20] MEDS ORDERED: ACETAMINOPHEN 325 MG TABLET PO ONE (01:38)
--- NOTE | 2017-06-20 01:40 | ER Document Report ---
ED General - General Chief Complaint: Fever Stated Complaint: FEVER,VOMITING Time Seen by Provider: 06/20/17 01:18 Notes: 32-year-old female with polycystic ovarian syndrome presents with 14 hours of fever and back pain bilateral, is feeling rundown and weak all day. She states that she did take Tylenol but that did not help. She denies dysuria hematuria or vaginal discharge. She vomited earlier today. She is very mild headache but no neck pain stiffness or photophobia. Her last period was sometime in May. She has been told she cannot be . TRAVEL OUTSIDE OF THE [place]. IN LAST 30 DAYS: No - Related Data Allergies/Adverse Reactions: ciprofloxacin [From Cipro] Allergy (Verified 06/19/17 21:53) sulfamethoxazole [From Bactrim] Allergy (Verified 06/19/17 21:53) trimethoprim [From Bactrim] Allergy (Verified 06/19/17 21:53) Past Medical History - General Information source: Patient - Social History Smoking Status: Unknown if Ever Smoked Family History: None Pulmonary Medical History: Reports: Hx Asthma Renal/ Medical History: Reports: Hx Ovarian Cysts. Denies: Hx Peritoneal Dialysis GI Medical History: Reports: Hx Gastroesophageal Reflux Disease Psychiatric Medical History: Reports: Hx Anxiety, Hx Bipolar Disorder, Hx Depression, Hx Obsessive Compulsive Disorder, Hx Post Traumatic Stress Disorder Past Surgical History: Reports: Hx Adenoidectomy, Hx Orthopedic Surgery, Hx Tonsillectomy - Immunizations Immunizations up to date: Yes Hx Diphtheria, Pertussis, Tetanus Vaccination: Yes Review of Systems - Review of Systems Notes: REVIEW OF SYSTEMS GEN: Fever and weakness ENT: Denies sore throat, nasal discharge, ear pain EYES: Denies blurry vision, eye pain, discharge CV: Denies chest pain, palpitations, edema RESP: Denies cough, shortness of breath, wheezing GI: Denies abdominal pain, nausea, vomiting, diarrhea MSK: Denies joint pain/swelling, edema, positive back pain SKIN: Denies rash, skin lesions LYMPH: Denies swollen glands/lymph nodes NEURO: Mild headache, bilateral arm leg and face tingling now resolved. PSYCH: Denies depression, suicidal or homicidal ideation PHYSICAL EXAMINATION General: No acute distress, well-nourished Head: Atraumatic, normocephalic ENT: Mouth normal, oropharynx moist, no exudates or tonsillar enlargement Eyes: Conjunctiva normal, pupils equal, lids normal Neck: No JVD, supple, no guarding full range of motion CVS: Normal rate, regular rhythm, no murmurs Resp: No resp distress, equal and normal breath sounds bilaterally GI: Nondistended, soft, no tenderness to palpation, no rebound or guarding Ext: No deformities, no edema, normal range of motion in upper and lower ext Back: No CVA or midline TTP. Diffuse muscle tenderness up and on the back. Skin: No rash, warm Lymphatic: No lymphadeopathy noted Neuro: Awake, alert. Face symmetric. GCS 15. Physical Exam - Vital signs Vitals: Temp Pulse Resp BP Pulse Ox 100.1 F 124 H 17 114/69 99 06/19/17 21:53 06/19/17 21:53 06/19/17 21:53 06/19/17 21:53 06/19/17 21:53 Course - Re-evaluation Re-evalutation: 06/20/17 01:53 32-year-old female presents with fever and back pain. She has elevated temperature in the ED but no focal CVA tenderness. This is either going to be a viral syndrome or a pyelonephritis. Her labs are normal except for mild leukocytosis which does not narrow down the differential, however is not concerning to me at this point given her clinical picture. Her urine shows that she is although she states that she cannot be. This could be a false positive secondary to polycystic ovarian syndrome. I will give her Tylenol for her symptoms. Do not think this is meningitis. Do not think this is rhabdo, or other severe illness. She will be discharged with good hydration instructions supportive care, and instructions to follow-up for a formal test and discussion with her primary about this test. The , of note, is unplanned and undesired. I have discussed with the patient there likely diagnosis, aftercare plan, follow -up plans and my usual and customary return precautions. They verbalized understanding of this. - Vital Signs Vital signs: Temp Pulse Resp BP Pulse Ox 100.1 F 124 H 17 114/69 99 06/19/17 21:53 06/19/17 21:53 06/19/17 21:53 06/19/17 21:53 06/19/17 21:53 - Laboratory Result Diagrams: 06/19/17 23:50 06/19/17 23:50 Laboratory results interpreted by me: 06/19/17 06/19/17 06/19/17 23:50 23:50 23:50 WBC 13.5 H RDW 14.6 H Seg Neuts % (Manual) 92 H Lymphocytes % (Manual) 4 L Abs Neuts (Manual) 12.4 H AST 49 H Urine Protein 30 H Urine Ketones 80 H Urine Urobilinogen 4.0 H Urine Ascorbic Acid 20 H Urine HCG, Qual POSITIVE H Discharge - Discharge Clinical Impression: Viral syndrome Condition: Good Disposition: HOME, SELF-CARE Instructions: Viral Syndrome ([facility]) Additional Instructions: Your test came back positive in the urine. Rarely this can be caused by polycystic ovarian syndrome, however you should see your primary care or an [employer] for confirmatory testing. He did not have a urinary infection and I think her fever is much more likely due to a virus. Please keep well hydrated and take Tylenol for a few days and it should get better. If it gets worse he developed a headache or neck stiffness or worsening symptoms please return to the ER.
[2017-06-20 02:06] VITALS: BP 120/73
== END 2017-06-20 02:01 | disposition home or self-care (01) ==
LOC: ER 20:54
DX: B34.9 Viral infection, unspecified (principal); R50.9 Fever, unspecified; E28.2 Polycystic ovarian syndrome; M54.9 Dorsalgia, unspecified; R53.1 Weakness; R11.10 Vomiting, unspecified; R51 Headache; D72.829 Elevated white blood cell count, unspecified; R20.2 Paresthesia of skin; J45.909 Unspecified asthma, uncomplicated; Z88.1 Allergy status to other antibiotic agents; Z32.01 Encounter for pregnancy test, result positive
CPT/HCPCS: 36415; 80053; 81001; 81025; 83690; 85025; 99283